=== PATIENT | male | born 1955 ===

== ENCOUNTER 2021-02-28 11:49 | Emergency (ER) | payer OTHER ==
[~2021-02-28] VITALS: Ht 185.4 cm; Wt 94.3 kg
[~2021-02-28 11:49] MED LIST: AMOX1TAB12 PO; DEMEBORO OTIC DROPS OT
[2021-02-28] MEDS ORDERED: TOPROL XL25 M1 (12:04)
[2021-02-28] MEDS ORDERED: ONDANSETRON ODT4 MG PO (17:14)
[2021-02-28] MEDS ORDERED: KETO10TA2 PO (17:14)
[2021-02-28] MEDS ORDERED: PEPCID AC20 MG PO (17:14)
[2021-02-28] MEDS ORDERED: TAMS0.4C PO (17:14)
== END 2021-02-28 17:26 ==
LOC: ER 11:49
DX: N20.1 Calculus of ureter (principal); R10.31 Right lower quadrant pain